=== PATIENT | female | born 1960 | race Caucasian/White ===

== ENCOUNTER 2017-08-05 13:47 | Emergency (ER) | payer MEDICARE, MEDICAID ==
[2017-08-05] MEDS ORDERED: Ondansetron HCl/PF 4 MG/2 ML Vial ONE (14:01)
[2017-08-05 15:37] LABS: Bilirubin Negative (Negative); Blood, Urine Negative (Negative); Clarity CLEAR (Clear); Glucose, Urine (Dipstick) Negative (Negative); Leukocyte Negative (Negative); Nitrite Negative (Negative); Protein, Urine (Dipstick) Negative (Neg-Trace); Specific Gravity, Urine 1.008 (1.002-1.036); Urobilinogen 0.2 mg/dL (0.2-1.0)
[2017-08-05] MEDS ORDERED: HYDROmorphone 0.5 MG/0.5 ML SYRINGE ONE ×3 (16:07→16:50)
[2017-08-05] MEDS ORDERED: Promethazine 25 MG TAB ONE (17:56)
== END 2017-08-05 19:10 | disposition home or self-care (01) ==
LOC: ERS 13:47
DX: R20.2 Paresthesia of skin (principal); F17.210 Nicotine dependence, cigarettes, uncomplicated; Z79.899 Other long term (current) drug therapy
CPT/HCPCS: 81003; 96374; 96375; J1170; J2405

== ENCOUNTER 2017-09-28 14:17 | Outpatient (CLI) | payer MEDICARE, MEDICAID ==
--- NOTE | 2017-09-28 16:22 | MRI ---
MRI LUMBAR SPINE NONCONTRAST: History: Low back pain with left leg radiculopathy. FINDINGS: Based on lumbar spine radiographs, the transitional vertebrae at the lumbosacral junction will be hira ignated as the first sacral level. This places the conus medullaris very low at the L1-2 level. Vertebral body heights and alignment are maintained. Small cyst is apparent within the liver. T12-L1, L1-2, L2-3: Very mild osteophytosis. Central canal and neural foramina are patent. L3-4: Posterior disc bulge along with circumferential degenerative changes results in mild stenosis o f the central canal and moderate stenosis of the right neural foramen. Small annular fissure is prese nt within the left posterior aspect of the intervertebral disc. L4-5: Minimal disc bulge and circumferential degenerative changes result in mild stenosis of the cent ral canal and moderate stenosis of each neural foramen. L5-S1: Small posterior disc protrusion with minimal inferior extension. There is only slight effaceme nt of the thecal sac. Disc bulge and degenerative changes result in moderate to severe left foraminal stenosis. IMPRESSION: Degenerative changes of the lower lumbar spine as detailed above with stenosis greatest at the left n eural foramen at the lumbosacral junction. Clinical correlation regarding the left L5 dermatome is re quired. POS: [facility]
--- NOTE | 2017-09-28 16:45 | RAD ---
LUMBAR SPINE FOUR VIEWS: 09/28/2017 HISTORY: Lumbar radiculopathy. The patient has low back pain with pain and weakness extending down the left l eg. COMPARISON: 08/25/2017 FINDINGS: Again, there are five [id number] lumbar-type vertebral bodies. Scattered minimal osteophytes ar e seen in the lumbar spine. The vertebral body heights are within normal limits, and there is no fra cture or subluxation. No abnormal translational motion is seen between the flexion and extension vie ws. There is mild narrowing of the L5-S1 intervertebral disk space. Surgical clips overly the right upper quadrant. There has been no interval change from the prior exam. IMPRESSION: Minimal degenerative changes in the lumbar spine, but no fracture or subluxation is visualized. POS: [facility]
== END 2017-09-28 14:18 | disposition home or self-care (01) ==
LOC: TBSIIMAG 14:17
PROVIDERS: ATTEND Surgery
DX: M47.26 Other spondylosis with radiculopathy, lumbar region (principal); M99.83 Other biomechanical lesions of lumbar region
CPT/HCPCS: 72110; 72148

== ENCOUNTER 2017-12-13 13:13 | Outpatient (CLI) | payer MEDICARE, MEDICAID ==
[2017-12-13 14:17] LABS: Hemoglobin 15.3 g/dL (12.0-16.0); Mean Corpuscular HGB CONC 35.9 g/dL (32.0-36.0); Mean Corpuscular Hemoglobin 32.5 pg (27.0-31.0); Mean Corpuscular Volume 90.4 fL (78.0-98.0); Mean Platelet Volume 6.2 fL (7.4-10.4); Platelet Count 263 thou/uL (130-400); RBC Distribution Width 11.5 % (11.5-14.5); Red Blood Cell (RBC) Count 4.73 mill/uL (4.20-5.40); White Blood Cell (WBC) Count 4.1 thou/uL (4.8-10.8)
[2017-12-13 14:25] LABS: INR-International Normal Ratio 0.9; PTT 24.4 SEC (22.9-36.1); Prothrombin Time 12.2 SEC (12.0-14.7)
[2017-12-13 14:43] LABS: Anion Gap 17 mmol/L (10-20); BUN (Urea Nitrogen) 9 mg/dL (9.8-20.1); Calc. Creatinine Clearance 0 mL/min (70-130); Calcium 9.3 mg/dL (7.8-10.44); Carbon Dioxide 20 mmol/L (22-29); Chloride 105 mmol/L (98-107); Estimated GFR-MDRD 75; Glucose 90 mg/dL (70-105); Potassium 3.9 mmol/L (3.5-5.1); Sodium 138 mmol/L (136-145)
== END 2017-12-13 13:14 | disposition home or self-care (01) ==
LOC: LABBT 13:13
PROVIDERS: ATTEND Surgery
DX: Z01.818 Encounter for other preprocedural examination (principal); M48.061 Spinal stenosis, lumbar region without neurogenic claudication; M54.16 Radiculopathy, lumbar region
CPT/HCPCS: 80048; 85027; 85610; 85730; 93005; 93010

== ENCOUNTER 2017-12-20 12:18 | Day surgery (SDC) | payer MEDICARE, MEDICAID ==
[2017-12-20] MEDS ORDERED: CEFAZOLIN/Water 2 GM/20 ML SYRINGE ONE (13:12)
[2017-12-20] MEDS ORDERED: Sodium Chloride 0.9% 10 ML ONE (13:37)
[2017-12-20] MEDS ORDERED: Thrombin 5000 UNITS/5 ML VIAL ONE (13:38)
[2017-12-20] MEDS ORDERED: Bacitracin Zinc Ointment 30 gm TUBE ONE (13:38)
[2017-12-20] MEDS ORDERED: Fentanyl 100 MCG/2 ML VIAL ONE ×4 (14:30→17:07)
[2017-12-20] MEDS ORDERED: Dexamethasone 20 MG/5 ML VIAL ONE (15:01)
[2017-12-20] MEDS ORDERED: ePHEDrine/0.9% NaCl/PF SYRINGE 50 mg/10 ml ONE (15:01)
[2017-12-20] MEDS ORDERED: Glycopyrrolate 0.2 MG/ML 5 ML SYRINGE ONE (15:01)
[2017-12-20] MEDS ORDERED: PROPOFOL 200 MG/20 ML VIAL ONE (15:01)
[2017-12-20] MEDS ORDERED: Ondansetron HCl/PF 4 MG/2 ML Vial ONE ×2 (15:01→17:59)
[2017-12-20] MEDS ORDERED: Lidocaine 1% PF 5 ML VIAL ONE (15:01)
[2017-12-20] MEDS ORDERED: Midazolam HCl 2 mg/2 ml Vial ONE (16:35)
[2017-12-20] MEDS ORDERED: Milk Of Magnesia 30 ML UDCUP PO PRN (16:46)
[2017-12-20] MEDS ORDERED: Acetaminophen/Codeine 30-300mg Tablet PO PRN (16:46)
[2017-12-20] MEDS ORDERED: Acetaminophen 325 MG TAB PO PRN (16:46)
[2017-12-20] MEDS ORDERED: Mag-Al 1200 mg/1200 mg/30 ML UDCUP PO PRN (16:46)
[2017-12-20] MEDS ORDERED: traMADol HCl 50 MG TAB PO PRN (16:46)
[2017-12-20] MEDS ORDERED: Promethazine HCl 25 MG/ML VIAL IM PRN (16:46)
[2017-12-20] MEDS ORDERED: Fleet Enema 133 ML BOT PR PRN (16:46)
[2017-12-20] MEDS ORDERED: Bisacodyl 10 MG SUPP PR PRN (16:46)
[2017-12-20] MEDS ORDERED: Promethazine HCl 25 MG/ML VIAL ONE (17:35)
[2017-12-20] MEDS ORDERED: Ketorolac Tromethamine 30 MG/ML VIAL ONE (17:48)
[2017-12-20] MEDS ORDERED: Ondansetron HCl/PF 4 MG/2 ML Vial IVP PRN (18:00)
[2017-12-20] MEDS ORDERED: Non-Formulary Medication 1 EACH PO PRN (18:00)
[2017-12-20] MEDS ORDERED: Promethazine HCl 25 MG/ML VIAL IM/IV PRN (18:00)
[2017-12-20] MEDS ORDERED: Metoclopramide HCl 10 MG/2 ML VIAL ONE (18:07)
[2017-12-20] MEDS ORDERED: Meperidine HCl/PF 25 MG/ML VIAL ONE (18:18)
--- NOTE | 2017-12-20 20:06 | OP ---
WOUND TYPE: Type 1 wound. SURGEON: Lamont Farfan M.D. CALCULUS PROFESSOR: Sumit Zhang PA-C. PREPROCEDURE DIAGNOSES: Left L5 radiculopathy with left L5 stenosis. POSTPROCEDURE DIAGNOSES: Left L5 radiculopathy with left L5 stenosis. PROCEDURE: 1. Left L5-S1 hemilaminotomy, foraminotomy to left L5 nerve root and diskectomy, left L5-S1. 2. Use of operative microscope for microdissection. DESCRIPTION OF PROCEDURE: After informed consent was obtained from the patient, the patient brought to OR 11. Proper patient pause identification was carried out. She was placed on oxygen, endotrache al anesthesia and positioned prone on the OR table. All appropriate points were padded. We identifi ed L5-S1 dorsal spines. A linear kimberley was made over this region. This area was sterilely cleansed, prepared, and draped. Proper patient pause and identification was again carried out. The left L5-S1 segment was then opened and exposed with sharp monopolar and blunt dissection, and left L5-S1 hemila minotomy, foraminotomy was performed following localization. We then were satisfied with our hemilam inotomy and the microscope was brought into the field and more work was done in the axilla of the lef t L5 nerve root and over the shoulder of the left S1 nerve root. We then entered the disk space and some disk material was removed, although the majority was osteophytic. At the conclusion, we had exc ellent decompression of the left L5 and left S1 nerve roots. There was no spinal fluid leak. Copiou s irrigation occurred throughout and we maximized hemostasis. The wound was then closed in anatomic layers following the sprinkling of vancomycin powder. The patient emerged from anesthesia.
[2017-12-20] MEDS: Sodium Chloride 0.9% 1,000 ML IV SCH (21:28)
[2017-12-20] MEDS: HYDROcodone/Acetaminophen 7.5/325 mg Tablet PO PRN (21:38)
[2017-12-20] MEDS: Cyclobenzaprine 10 MG TAB PO PRN (21:38)
[2017-12-20] MEDS: CEFAZOLIN/Water 2 GM/20 ML SYRINGE SLOW IVP SCH (21:40)
[2017-12-20 21:44] VITALS: BMI 19.4
[2017-12-21] MEDS: CEFAZOLIN/Water 2 GM/20 ML SYRINGE SLOW IVP SCH (06:05)
[2017-12-21] MEDS: Sodium Chloride 0.9% 1,000 ML IV SCH (07:10)
[2017-12-21] MEDS: HYDROcodone/Acetaminophen 7.5/325 mg Tablet PO PRN (07:40)
[2017-12-21] MEDS: Cyclobenzaprine 10 MG TAB PO PRN (07:40)
--- NOTE | 2017-12-21 11:23 | PRG ---
DATE OF SERVICE: 12/21/2017 Postop day 1 from left L5 foraminotomy. She is doing very well with resolution of her leg pain. Sharon hoffman. We went over intra and postoperative issues. She will be dismissed.
[2017-12-21 11:29] VITALS: BP 147/84; TEMP 97.7
== END 2017-12-21 12:18 | disposition home or self-care (01) ==
LOC: SDC 12:18 → SURG A 18:04 → SDC 12-21 12:18
PROVIDERS: ATTEND Surgery
PROC: 0SB20ZZ Excision of Lumbar Vertebral Disc, Open Approach (ICD-10-PCS; principal; 2017-12-20)
PROC: 01NB0ZZ Release Lumbar Nerve, Open Approach (ICD-10-PCS; 2017-12-20)
DX: M48.061 Spinal stenosis, lumbar region without neurogenic claudication (principal); Z88.2 Allergy status to sulfonamides
CPT/HCPCS: 76001; 96374; A4216; J0131; J1100; J1885; J2001; J2175; J2250; J2405; J2550; J2704; J2765; J3010; J3370; J3490

== ENCOUNTER 2018-06-16 10:15 | Outpatient (CLI) | payer MEDICARE, MEDICAID ==
--- NOTE | 2018-06-16 11:13 | RAD ---
LEFT ELBOW 4 VIEWS: Date: 06/16/18 HISTORY: Left elbow pain. FINDINGS/IMPRESSION: No fracture, dislocation, or bony destruction is identified. POS: [facility]
== END 2018-06-16 10:16 | disposition home or self-care (01) ==
LOC: RAD 10:15
PROVIDERS: ATTEND Specialist
DX: M25.522 Pain in left elbow (principal)
CPT/HCPCS: 80307; G0483

== ENCOUNTER 2018-10-02 10:25 | Observation (INO) | payer MEDICARE, MEDICAID ==
--- NOTE | 2018-10-02 11:06 | RAD ---
PORTABLE CHEST 1 VIEW: DATE: 10/02/2018. TIME: 10:45 a.m. HISTORY: Syncope, dizziness. FINDINGS: The heart size is normal. The lungs are expanded without focal areas of consolidation, pneumothorace s, or pleural effusions. IMPRESSION: No acute process. POS: [facility]
[2018-10-02 11:32] LABS: #Basophils 0.1 thou/uL (0.0-0.2); #Eosinphils 0.1 thou/uL (0.0-0.7); #Lymphocytes 0.6 thou/uL (1.20-3.40); #Monocytes 0.5 thou/uL (0.11-0.59); #Neutrophils 9.8 thou/uL (1.40-6.50); %Basophils 0.5 % (0.0-1.0); %Eosinophils 0.7 % (0.0-10.0); %Lymphocytes 5.5 % (21.0-51.0); %Monocytes 4.5 % (0.0-10.0); %Neutrophils 88.9 % (42.0-75.0); Hemoglobin 14.7 g/dL (12.0-16.0); Mean Corpuscular HGB CONC 34.3 g/dL (32.0-36.0); Mean Corpuscular Hemoglobin 31.6 pg (27.0-31.0); Mean Corpuscular Volume 92.1 fL (78.0-98.0); Mean Platelet Volume 6.6 fL (7.4-10.4); Platelet Count 278 thou/uL (130-400); RBC Distribution Width 11.4 % (11.5-14.5); Red Blood Cell (RBC) Count 4.66 mill/uL (4.20-5.40)
--- NOTE | 2018-10-02 11:39 | CT ---
CT BRAIN WITHOUT CONTRAST: HISTORY: Dizziness with syncope. FINDINGS: Comparison is made to the exam of 01/23/2014. No evidence of infarct, hemorrhage, midline shift, or abnormal extraaxial fluid collection is seen. The ventricular size is normal and the basilar cisterns are patent. The bony calvarium is intact. T he visualized paranasal sinuses and mastoid air cells are well aerated. IMPRESSION: No CT evidence of acute intracranial process. POS: [facility]
--- NOTE | 2018-10-02 11:42 | CT ---
CT CERVICAL SPINE WITH CORONAL AND SAGITTAL REFORMATIONS: HISTORY: Syncope, collapse, neck pain. FINDINGS/IMPRESSION: There are postop changes of anterior spinal fusion with plate and screws at C5-6-7 levels in good pos ition and alignment. No acute fracture, subluxation, or facet malalignment is identified. The 5 mm low-density lesion in the left lobe of the thyroid gland is stable since 07/19/2015. POS: [facility]
[2018-10-02] MEDS ORDERED: Fentanyl 100 MCG/2 ML VIAL ONE ×2 (11:46→13:46)
[2018-10-02 11:59] LABS: ALT (SGPT) 110 U/L (8-55); AST (SGOT) 89 U/L (5-34); Albumin 4.4 g/dL (3.5-5.0); Alkaline Phosphatase 142 U/L (40-150); Anion Gap 15 mmol/L (10-20); BUN (Urea Nitrogen) 14 mg/dL (9.8-20.1); Bilirubin, Total 0.7 mg/dL (0.2-1.2); CK (CPK) 133 U/L (29-168); Calc. Creatinine Clearance 0 mL/min (70-130); Calcium 9.1 mg/dL (7.8-10.44); Carbon Dioxide 22 mmol/L (22-29); Chloride 106 mmol/L (98-107); Estimated GFR-MDRD 85; Globulin 2.3 g/dL (2.4-3.5); Glucose 103 mg/dL (70-105); Potassium 3.5 mmol/L (3.5-5.1); Protein, Total 6.7 g/dL (6.0-8.3); Sodium 139 mmol/L (136-145)
--- NOTE | 2018-10-02 12:32 | RAD ---
LUMBAR SPINE 3 VIEWS: HISTORY: Injury. Low back pain. FINDINGS: Comparison is made with the exam of 08/25/2017. FINDINGS/IMPRESSION: Mild degenerative changes are present. No fracture, subluxation, or bony destruction is identified. POS: [facility]
--- NOTE | 2018-10-02 12:33 | RAD ---
LEFT HIP 2 VIEWS: HISTORY: Fall, injury, left hip pain. FINDINGS/IMPRESSION: No acute fracture or dislocation is identified. POS: [facility]
[2018-10-02 14:49] LABS: Color Of CSF Supernatant COLORLESS (Colorless); Tube # 2; Unspun CSF Color COLORLESS (Colorless)
[2018-10-02 14:59] LABS: CSF Source CSF; Clarity Clear (Clear); RBC Count - Manual 0 /cumm (None Seen); RBC Count - Manual 5 /cumm (None Seen); Tube # 1; Tube # 4; WBC/NonHematics Count - Manual 0 /cumm (0-5)
[2018-10-02 15:08] LABS: CSF, Glucose 61 mg/dl (40-70); CSF, Protein 44 mg/dL (15-40)
[2018-10-02 15:09] LABS: Troponin I Less than 0.010 ng/mL (< 0.028)
[2018-10-02] MEDS ORDERED: Ondansetron PF 4 MG/2 ML Vial IVP PRN ×2 (16:06→17:18)
[2018-10-02] MEDS ORDERED: Ondansetron ODT 4 MG TAB SL PRN (16:06)
[2018-10-02] MEDS ORDERED: Sodium Chloride 0.9% 1,000 ML IV SCH (16:06)
[2018-10-02] MEDS ORDERED: Ketorolac Tromethamine 30 MG/ML VIAL IVP PRN (16:36)
[2018-10-02] MEDS ORDERED: Ondansetron ODT 4 MG TAB PO PRN (17:18)
[2018-10-02] MEDS ORDERED: Benzonatate 100 MG CAP PO PRN (17:18)
[2018-10-02] MEDS ORDERED: hydrALAZINE 20 MG/ML VIAL SLOW IVP PRN (17:18)
[2018-10-02] MEDS ORDERED: Ibuprofen 200 MG TAB PO PRN (17:18)
[2018-10-02] MEDS ORDERED: Acetaminophen 500 MG TAB PO PRN (17:18)
[2018-10-02 17:24] VITALS: BMI 19.3
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
[2018-10-02 18:11] LABS: Amphetamine Not Detected (NotDetected); Barbiturates Screen Not Detected (NotDetected); Benzodiazepine Screen Not Detected (NotDetected); Cocaine Metabolite Screen Not Detected (NotDetected); Medtox Control Line Valid? VALID (VALID); Medtox Reader # READER 1; Methadone Not Detected (NotDetected); Methamphetamine Not Detected (NotDetected); Opiate Screen Detected (NotDetected); Oxycodone Screen Not Detected (NotDetected); Phencyclidine (PCP) Not Detected (NotDetected); THC/Cannabinoid Screen Detected (NotDetected); Tricyclic Screen Detected (NotDetected)
[2018-10-02 18:27] LABS: Troponin I Less than 0.010 ng/mL (< 0.028)
[2018-10-02] MEDS: Sodium Chloride 0.9% 1,000 ML IV SCH (19:06)
[2018-10-02] MEDS: HYDROcodone/Acetaminophen 10/325 mg Tablet PO PRN (19:55)
[2018-10-02] MEDS: Famotidine 20 MG TAB PO SCH (19:56)
[2018-10-03] MEDS: Sodium Chloride 0.9% 1,000 ML IV SCH ×2 (01:18→13:11)
[2018-10-03] MEDS: HYDROcodone/Acetaminophen 10/325 mg Tablet PO PRN ×3 (01:19→13:06)
[2018-10-03 06:18] LABS: ALT (SGPT) 75 U/L (8-55); AST (SGOT) 54 U/L (5-34); Albumin 3.6 g/dL (3.5-5.0); Alkaline Phosphatase 118 U/L (40-150); Anion Gap 12 mmol/L (10-20); BUN (Urea Nitrogen) 12 mg/dL (9.8-20.1); Bilirubin, Total 1.2 mg/dL (0.2-1.2); Calc. Creatinine Clearance 66 mL/min (70-130); Calcium 8.4 mg/dL (7.8-10.44); Carbon Dioxide 22 mmol/L (22-29); Chloride 109 mmol/L (98-107); Estimated GFR-MDRD 85; Globulin 2.2 g/dL (2.4-3.5); Glucose 80 mg/dL (70-105); Potassium 3.2 mmol/L (3.5-5.1); Protein, Total 5.8 g/dL (6.0-8.3); Sodium 140 mmol/L (136-145)
[2018-10-03 06:52] LABS: Hemoglobin 13.1 g/dL (12.0-16.0); Mean Corpuscular HGB CONC 32.8 g/dL (32.0-36.0); Mean Corpuscular Hemoglobin 30.7 pg (27.0-31.0); Mean Corpuscular Volume 93.6 fL (78.0-98.0); Mean Platelet Volume 6.8 fL (7.4-10.4); Platelet Count 243 thou/uL (130-400); RBC Distribution Width 11.4 % (11.5-14.5); Red Blood Cell (RBC) Count 4.26 mill/uL (4.20-5.40); White Blood Cell (WBC) Count 4.5 thou/uL (4.8-10.8)
[2018-10-03] MEDS: Famotidine 20 MG TAB PO SCH (08:48)
--- NOTE | 2018-10-03 09:10 | ULT ---
CAROTID DUPLEX SONOGRAM: History: Syncope. Vascular disease. FINDINGS: Right: No significant plaque. Color and spectral doppler evaluation, peak systolic velocity of 68 cm/ sec and IC to CC ratio of 1.0 suggests no hemodynamically significant stenosis within the extracrania l right ICA. Antegrade flow within the vertebral artery. Left: No significant plaque visible. Color and spectral doppler evaluation, peak systolic velocity of 64 cm/sec, and IC to CC ratio of 0.7 cm suggests no hemodynamically significant stenosis within the extracranial left ICA. Antegrade flow within the vertebral artery. IMPRESSION: Normal exam. No sonographic evidence of significant extracranial ICA stenosis. POS: [facility]
[2018-10-03 09:19] LABS: Band 5 % (5-11); Eosinophils 10 % (0-10); Lymphocytes 26 % (21-51); MDiff Complete? YES; Monocytes 10 % (0-10); Neutrophil 48 % (42-75); RBC Morphology Normal; Reactive Lymphocytes 1 % (0-10)
--- NOTE | 2018-10-03 09:22 | RAD ---
FLUOROSCOPIC GUIDED LUMBAR PUNCTURE: History: Syncope, headache. FINDINGS: After explaining the procedure and answering all questions, the lower back was prepped and draped in the usual sterile fashion. Sterile technique, buffered local anesthesia, sonographic guidance and a p osterior L2-3 approach were used to carefully advance a 20 gauge spinal needle into the thecal sac. A total volume of 7 cc clear CSF was collected in four sterile containers and submitted to laboratory for analysis. The needle was removed. The patient tolerated the procedure well and was returned in un changed condition. Fluoro time: 0.3 minutes IMPRESSION: Technically successful fluoroscopic guided lumbar puncture. POS: [facility]
[2018-10-03 11:44] VITALS: BP 131/75; TEMP 97.4
== END 2018-10-03 16:11 | disposition home or self-care (01) ==
LOC: ERS 10:25 → 2SE 14:00
PROVIDERS: ADMIT Family Medicine; ATTEND Family Medicine
DX: R55 Syncope and collapse (principal); R51 Headache; R42 Dizziness and giddiness; M25.552 Pain in left hip; M54.5 Low back pain; M54.2 Cervicalgia; D72.829 Elevated white blood cell count, unspecified; G89.4 Chronic pain syndrome; F17.210 Nicotine dependence, cigarettes, uncomplicated; R74.0 Nonspecific elevation of levels of transaminase and lactic acid dehydrogenase [LDH]; W18.30XA Fall on same level, unspecified, initial encounter; Y92.000 Kitchen of unspecified non-institutional (private) residence as the place of occurrence of the external cause; Z79.891 Long term (current) use of opiate analgesic; Z79.899 Other long term (current) drug therapy; Z88.2 Allergy status to sulfonamides
CPT/HCPCS: 62270; 70450; 71045; 72100; 72125; 73502; 80053 ×2; 80306; 82550; 82945; 84146; 84157; 84484 ×2; 85007; 85025; 85027; 89051; 93005; 93306; 93880; 96361; 96374; 96375; 96376; 99285; G0378 ×2; 36415; J1885; J3010

== ENCOUNTER 2018-10-05 13:13 | Emergency (ER) | payer MEDICARE, MEDICAID ==
[~2018-10-05 13:13] MED LIST: ISOVUE-370 76%-LOCM 1 ML ONE
[2018-10-05] MEDS ORDERED: Metoclopramide 10 MG/10 ML UDCUP ONE (14:50)
[2018-10-05] MEDS ORDERED: diphenhydrAMINE 50 MG/ML VIAL ONE (14:50)
[2018-10-05] MEDS ORDERED: Metoclopramide HCl 10 MG/2 ML VIAL ONE (14:51)
[2018-10-05 15:09] LABS: #Eosinphils 0.3 thou/uL (0.0-0.7); #Lymphocytes 0.9 thou/uL (1.20-3.40); #Monocytes 0.4 thou/uL (0.11-0.59); #Neutrophils 2.5 thou/uL (1.40-6.50); %Basophils 0.3 % (0.0-1.0); %Eosinophils 6.5 % (0.0-10.0); %Lymphocytes 21.9 % (21.0-51.0); %Monocytes 9.2 % (0.0-10.0); Hemoglobin 14.2 g/dL (12.0-16.0); Mean Corpuscular HGB CONC 33.9 g/dL (32.0-36.0); Mean Corpuscular Hemoglobin 31.7 pg (27.0-31.0); Mean Corpuscular Volume 93.6 fL (78.0-98.0); Platelet Count 245 thou/uL (130-400); RBC Distribution Width 11.4 % (11.5-14.5); Red Blood Cell (RBC) Count 4.46 mill/uL (4.20-5.40); White Blood Cell (WBC) Count 4.1 thou/uL (4.8-10.8)
[2018-10-05 15:34] LABS: ALT (SGPT) 52 U/L (8-55); AST (SGOT) 37 U/L (5-34); Albumin 4.1 g/dL (3.5-5.0); Alkaline Phosphatase 126 U/L (40-150); Anion Gap 12 mmol/L (10-20); BUN (Urea Nitrogen) 5 mg/dL (9.8-20.1); Bilirubin, Total 0.4 mg/dL (0.2-1.2); Calc. Creatinine Clearance 0 mL/min (70-130); Calcium 9.9 mg/dL (7.8-10.44); Carbon Dioxide 28 mmol/L (22-29); Chloride 103 mmol/L (98-107); Estimated GFR-MDRD Greater than 90; Globulin 2.7 g/dL (2.4-3.5); Glucose 107 mg/dL (70-105); Potassium 4.4 mmol/L (3.5-5.1); Protein, Total 6.8 g/dL (6.0-8.3); Sodium 139 mmol/L (136-145)
--- NOTE | 2018-10-05 15:39 | CT ---
Exam: CT ANGIOGRAM OF HEAD CT ANGIOGRAM OF NECK: HISTORY: Throbbing headache, radiating down the neck. History of syncope. COMPARISON: None. TECHNIQUE: CT angiogram of the head and neck are performed in the axial plane. Three-dimensional refo rmatted images are submitted for interpretation. FINDINGS: Postcontrast head CT: Cortical oh-white matter differentiation is preserved. No abnormal enhancement of the brain parench yma. No hydrocephalus. Adequate aeration of the sinuses and mastoid air cells. Postcontrast neck CT: Bilateral ocular lenses are appropriately located. Both globes are intact. Retrobulbar fat is preserv ed. Symmetric attenuation of the parotid and submandibular glands. No evidence of lymphadenopathy by size criteria. Limited evaluation the oral cavity due to motion and dental amalgam artifact. Epiglottis has a normal caliber. There is no prevertebral soft tissue swelling. Cervical fusion at C5, C6, and C7. No perihardware lucency. Straightening of normal cervical lordosis , secondary to fusion. Varying degrees of central canal stenosis and neural foraminal narrowing on the basis of degenerative change. Evaluation is limited by technique. Upper mediastinum and lung apices are unremarkable. CT ANGIOGRAM NECK: Visualized aortic arch has a normal caliber. Right carotid: The right carotid artery origin, common carotid artery, carotid bifurcation, and inter nal carotid artery have appropriate enhancement and luminal diameter. Left carotid: The left carotid artery origin, common carotid, carotid bifurcation, and internal carot id artery have appropriate enhancement and luminal diameter. Bilateral cervical vertebral arteries are patent throughout their course in the neck. Left vertebral artery is dominant. Visualized subclavian arteries are unremarkable. CT ANGIOGRAM HEAD: Intracranial internal carotid arteries have appropriate enhancement and luminal di ameter Anterior circulation: Symmetric enhancement and luminal diameter the A1 and M1 segments. Proximal A2 segments and proximal MCA branches are unremarkable. Posterior circulation: Bilateral PICA artery origins are unremarkable. Both vertebral arteries supply a normal basilar artery. The left and right P1 segment have symmetric enhancement and luminal diameter. IMPRESSION: 1. Unremarkable CT angiogram of the head. 2. Unremarkable CT angiogram of the neck. No significant stenosis based upon NASCET criteria. Transcribed Date/Time: 10/05/2018 3:55 PM
--- NOTE | 2018-10-05 16:12 | CT ---
CT BRAIN WITHOUT CONTRAST: Date: 10/05/18 HISTORY: Throbbing headache. FINDINGS: Comparison made with exam of 10/02/18. No evidence of acute infarct, hemorrhage, midline shift, or abnormal extra-axial fluid collections ar e seen. The ventricular size is normal and the basilar cisterns are patent. The bony calvarium is int act. The visualized paranasal sinuses and mastoid air cells are well aerated. IMPRESSION: Stable exam. No CT evidence of acute intracranial process. POS: [facility]
[2018-10-05] MEDS ORDERED: Ketorolac Tromethamine 30 MG/ML VIAL ONE (16:19)
[2018-10-05] MEDS ORDERED: methylPREDNISolone Sod Succ/PF 125 MG/2 ML VIAL ONE (16:19)
[2018-10-05] MEDS ORDERED: Magnesium 2 GM/50 ML BAG (IN WATER) ONE (16:20)
== END 2018-10-05 18:15 | disposition home or self-care (01) ==
LOC: ERS 13:13
DX: H57.02 Anisocoria (principal); Z87.891 Personal history of nicotine dependence; Z79.1 Long term (current) use of non-steroidal anti-inflammatories (NSAID); Z79.899 Other long term (current) drug therapy
CPT/HCPCS: 70450; 70496; 70498; 80053; 85025; 96361; 96365; 96367; 96375; J1200; J1885; J2765; J2930; J3475; J8597; Q9966

== ENCOUNTER 2019-02-20 08:38 | Emergency (ER) | payer MEDICARE, MEDICAID ==
[2019-02-20] MEDS ORDERED: Morphine 4 MG/ML VIAL ONE (09:11)
[2019-02-20] MEDS ORDERED: Ondansetron PF 4 MG/2 ML Vial ONE (09:11)
[2019-02-20 09:12] LABS: #Basophils 0.1 thou/uL (0.0-0.2); #Eosinphils 0.2 thou/uL (0.0-0.7); #Lymphocytes 1.3 thou/uL (1.20-3.40); #Monocytes 0.5 thou/uL (0.11-0.59); #Neutrophils 2.6 thou/uL (1.40-6.50); %Basophils 1.4 % (0.0-1.0); %Eosinophils 3.9 % (0.0-10.0); %Lymphocytes 28.1 % (21.0-51.0); %Monocytes 10.4 % (0.0-10.0); %Neutrophils 56.2 % (42.0-75.0); Hemoglobin 14.6 g/dL (12.0-16.0); Mean Corpuscular HGB CONC 34.8 g/dL (32.0-36.0); Mean Corpuscular Hemoglobin 30.9 pg (27.0-31.0); Mean Corpuscular Volume 88.8 fL (78.0-98.0); Mean Platelet Volume 7.1 fL (7.4-10.4); Platelet Count 251 thou/uL (130-400); RBC Distribution Width 11.6 % (11.5-14.5); Red Blood Cell (RBC) Count 4.72 mill/uL (4.20-5.40); White Blood Cell (WBC) Count 4.7 thou/uL (4.8-10.8)
[2019-02-20 09:31] LABS: ALT (SGPT) 45 U/L (8-55); AST (SGOT) 96 U/L (5-34); Albumin 4.4 g/dL (3.5-5.0); Alkaline Phosphatase 171 U/L (40-110); Anion Gap 13 mmol/L (10-20); BUN (Urea Nitrogen) 8 mg/dL (9.8-20.1); Bilirubin, Total 0.6 mg/dL (0.2-1.2); Calc. Creatinine Clearance 0 mL/min (70-130); Calcium 9.4 mg/dL (7.8-10.44); Carbon Dioxide 26 mmol/L (22-29); Chloride 103 mmol/L (98-107); Estimated GFR-MDRD 81; Globulin 2.7 g/dL (2.4-3.5); Glucose 102 mg/dL (70-105); Lipase 16 U/L (8-78); Potassium 3.6 mmol/L (3.5-5.1); Protein, Total 7.1 g/dL (6.0-8.3); Sodium 138 mmol/L (136-145)
--- NOTE | 2019-02-20 09:32 | RAD ---
EXAM: 4 views of the left knee HISTORY: Knee pain COMPARISON: None FINDINGS: No knee effusion is seen. There is no evidence of acute fracture or dislocation. No signifi cant degenerative changes are seen. No soft tissue swelling is present. IMPRESSION: No evidence of acute osseous abnormality.
--- NOTE | 2019-02-24 14:39 | EKG ---
Test Reason : Blood Pressure : / mmHG Vent. Rate : 074 BPM Atrial Rate : 074 BPM P-R Int : 126 ms QRS Dur : 100 ms QT Int : 440 ms P-R-T Axes : 000 136 121 degrees QTc Int : 488 ms Normal sinus rhythm Incomplete right bundle branch block Left posterior fascicular block Prolonged QT Abnormal ECG Confirmed by ELIESER OH DO ([id number]), website/blog editor ITALIA ZHANG ([id number]) on 02/24/2019 2:38:59 PM Referred By: Confirmed By:ELIESER OH DO
== END 2019-02-20 10:05 | disposition home or self-care (01) ==
LOC: ERS 08:38
DX: M25.562 Pain in left knee (principal); R10.9 Unspecified abdominal pain; F17.210 Nicotine dependence, cigarettes, uncomplicated; Z79.899 Other long term (current) drug therapy
CPT/HCPCS: 36415; 80053; 83690; 85025; 93005; 96361; 96374; 96375; J2270; J2405

== ENCOUNTER 2019-03-23 13:57 | Outpatient (CLI) | payer MEDICAID, MEDICARE ==
--- NOTE | 2019-03-23 16:16 | MRI ---
MR CERVICAL SPINE WITHOUT CONTRAST INDICATION: Pain in the right arm and right leg as well as numbness in the left arm and left leg with history of cervical spinal surgery TECHNIQUE: Multiplanar multisequence MR images were obtained of the cervical spine without contrast. COMPARISON: CT of the cervical spine dated October 02, 2018. Comparisons are also made with MR the cervic al spine dated August 21, 2012. FINDINGS: Posterior fossa: Within normal limits. Bone marrow signal intensity: There is susceptibility artifact involving the C5-C7 vertebral level co nsistent with postsurgical change of an ACDF. Spinal alignment: Normal. Craniocervical junction: Normal appearing. Prevertebral and perivertebral soft tissues: Visualized soft tissues appear within normal limits. Vertebral levels: C2-C3: No appreciable central canal or neuroforaminal narrowing. C3-4: Mild broad-based disc bulge without appreciable central canal or neural foraminal narrowing. C4-5: There is a mild broad-based disc bulge. There is mild right neural foraminal narrowing due to u ncovertebral hypertrophy and facet joint degenerative change. Mild right neural foraminal narrowing is new from 2013. C5-C6: There is severe right neural foraminal narrowing due to uncovertebral hypertrophy and facet de generative change. There is mild left neural foraminal narrowing also present at this level. The degree neuroforaminal narrowing has progressed from the prior MR examination in 2012. C6-C7:, No appreciable central canal or neuroforaminal narrowing. C7-T1: No appreciable central canal or neuroforaminal narrowing. IMPRESSION: 1. Severe right and mild left neural foraminal narrowing due to uncovertebral hypertrophy and facet j oint degenerative change at C5-C6. 2. Mild right neural foraminal narrowing at C4-5. 3. ACDF of C5-C7.
--- NOTE | 2019-03-23 16:26 | MRI ---
MRI lumbar spine noncontrast: HISTORY: Lumbar radiculopathy. Right leg pain. Left leg numbness. COMPARISON: 09/28/2017 FINDINGS: Appropriate T1 marrow signal intensity of the lumbar vertebra. Lumbar spine vertebral body height is maintained. No fracture. No significant STIR hyperintensity to suggest vertebral body edema or ligamentous injury Appropriate signal intensity of the paraspinal muscles. Appropriate signal intensi ty of the solid organs. Stable T2 hyperintensity on the right hepatic lobe measuring 1.2 cm, compatible with a cyst. Conus medullaris terminates at the upper aspect of L2. T12-L1:Adequate disc hydration. No significant central canal stenosis or significant neural foraminal narrowing L1-L2:Adequate disc hydration. No significant central canal stenosis or significant neural foraminal narrowing L2-L3:Adequate disc hydration. Minimal left and right paracentral disc bulges. Mild central canal david nosis. Neural foramina are patent L3-L4:Adequate disc hydration. Broad-based disc bulge, ligament flavum thickening and facet hypertrop hy result in mild central canal stenosis. Bilaterally, neural foramina pain L4-L5:Adequate disc hydration. Broad-based disc bulge, ligamentum flavum thickening and facet hypertr ophy result in mild central canal stenosis. Mild right neural foraminal narrowing. Left neural foramen is patent L5-S1:Mild loss of disc space height. Broad-based disc bulge does not cause any significant stenosis of the thecal sac. Mild right foraminal narrowing due to disc material. Severe left foraminal narrowing due to disc material and facet hypertrophy. The degree of left foraminal stenosis is simila r to the previous exam. IMPRESSION: Multilevel degenerative changes of the lumbar spine as described above Transcribed Date/Time: 03/23/2019 5:04 PM
== END 2019-03-23 13:58 | disposition home or self-care (01) ==
LOC: TBSIIMAG 13:57
PROVIDERS: ATTEND Nurse Practitioner Family
DX: M47.26 Other spondylosis with radiculopathy, lumbar region (principal); M54.2 Cervicalgia; M47.812 Spondylosis without myelopathy or radiculopathy, cervical region; M48.02 Spinal stenosis, cervical region
CPT/HCPCS: 72141; 72148

== ENCOUNTER 2020-01-21 06:43 | Outpatient (CLI) | payer MEDICARE, OTHER ==
--- NOTE | 2020-01-21 15:27 | EKG ---
Test Reason : Blood Pressure : / mmHG Vent. Rate : 082 BPM Atrial Rate : 082 BPM P-R Int : 132 ms QRS Dur : 090 ms QT Int : 398 ms P-R-T Axes : 000 088 081 degrees QTc Int : 464 ms Normal sinus rhythm Normal ECG When compared with ECG of 21-JAN-2020 14:17, (Unconfirmed) Abberant conduction is no longer Present Confirmed by NAYANA CALDERON M.D. ([id number] on 01/21/2020 3:27:39 PM Referred By: ALESSANDRO Confirmed By:NAYANA CALDERON M.D.
[2020-01-21 16:15] LABS: #Monocytes 0.4 thou/uL (0.11-0.59); #Neutrophils 3.8 thou/uL (1.40-6.50); %Basophils 0.6 % (0.0-1.0); %Eosinophils 0.7 % (0.0-10.0); %Lymphocytes 18.7 % (21.0-51.0); %Neutrophils 71.9 % (42.0-75.0); Hemoglobin 13.7 g/dL (12.0-16.0); Mean Corpuscular HGB CONC 33.6 g/dL (32.0-36.0); Mean Corpuscular Hemoglobin 31.5 pg (27.0-31.0); Mean Corpuscular Volume 93.8 fL (78.0-98.0); Mean Platelet Volume 6.6 fL (7.4-10.4); Platelet Count 315 thou/uL (130-400); Red Blood Cell (RBC) Count 4.34 mill/uL (4.20-5.40); White Blood Cell (WBC) Count 5.3 thou/uL (4.8-10.8)
[2020-01-21 19:29] LABS: Anion Gap 18 mmol/L (10-20); BUN (Urea Nitrogen) 6 mg/dL (9.8-20.1); Calc. Creatinine Clearance 0 mL/min (70-130); Calcium 8.8 mg/dL (7.8-10.44); Carbon Dioxide 20 mmol/L (22-29); Chloride 101 mmol/L (98-107); Estimated GFR-MDRD 76; Glucose 122 mg/dL (70-105); Sodium 135 mmol/L (136-145)
[2020-01-22 13:01] LABS: SARS-CoV-2 MS2 Positive; SARS-CoV-2 N Gene Negative; SARS-CoV-2 S Gene Negative; SARS-CoV-2 by NAA Not Detected (NotDetected); SARS-CoV-2 orf1ab Negative
== END 2020-01-21 06:44 | disposition home or self-care (01) ==
LOC: LABBT 06:43
PROVIDERS: ATTEND Internal Medicine Gastroenterology
DX: Z01.818 Encounter for other preprocedural examination (principal); Z20.828 Contact with and (suspected) exposure to other viral communicable diseases; S46.011A Strain of muscle(s) and tendon(s) of the rotator cuff of right shoulder, initial encounter; M75.20 Bicipital tendinitis, unspecified shoulder
CPT/HCPCS: 80048; 85025; 93005; U0003; 87635; 93010

== ENCOUNTER 2020-01-24 06:31 | Day surgery (SDC) | payer MEDICARE ==
[2020-01-22 10:38] VITALS: BMI 20.1
[2020-01-24] MEDS ORDERED: Midazolam HCl 2 mg/2 ml Vial ONE (07:31)
[2020-01-24] MEDS ORDERED: Fentanyl 100 MCG/2 ML VIAL ONE (07:32)
[2020-01-24] MEDS ORDERED: Promethazine HCl 25 MG/ML VIAL IM PRN (08:15)
[2020-01-24] MEDS ORDERED: HYDROcodone/Acetaminophen 10/325 mg Tablet PO PRN ×2 (08:15)
[2020-01-24] MEDS ORDERED: Zolpidem Tartrate 5 MG TAB PO PRN (08:15)
[2020-01-24] MEDS ORDERED: traMADol HCl 50 MG TAB PO PRN ×2 (08:15)
[2020-01-24] MEDS ORDERED: Ropivacaine 0.2% 550 ML 550 ML NERVE BLCK SCH (08:15)
[2020-01-24] MEDS ORDERED: Ondansetron PF 4 MG/2 ML Vial IVP PRN (08:15)
[2020-01-24] MEDS ORDERED: Fentanyl 100 MCG/2 ML VIAL IV PRN (08:16)
[2020-01-24] MEDS ORDERED: Bupivacaine HCl 0.5%/Epinephrine 1:200,000/PF 30 ml Vial ONE (08:49)
[2020-01-24] MEDS ORDERED: Ondansetron PF 4 MG/2 ML Vial ONE ×2 (09:06→10:23)
[2020-01-24] MEDS ORDERED: Glycopyrrolate 0.2 MG/ML 5 ML SYRINGE ONE (10:23)
[2020-01-24] MEDS ORDERED: Rocuronium Bromide 10 MG/ML (10ML VIAL) ONE (10:23)
[2020-01-24] MEDS ORDERED: Lidocaine 1% PF 5 ML VIAL ONE (10:23)
[2020-01-24] MEDS ORDERED: PROPOFOL 200 MG/20 ML VIAL ONE (10:23)
[2020-01-24] MEDS ORDERED: EPHEDRINE 25 MG/5 ML SYRINGE ONE (10:23)
[2020-01-24] MEDS ORDERED: Dexamethasone 20 MG/5 ML VIAL ONE (10:23)
[2020-01-24] MEDS ORDERED: Promethazine HCl 25 MG/ML VIAL ONE (10:25)
[2020-01-24] MEDS ORDERED: Ropivacaine 0.2% HCl/PF (40 MG/20 ML VIAL) ONE (10:25)
[2020-01-24] MEDS ORDERED: Ropivacaine 0.5% HCl/PF (150 MG/30 ML VIAL) ONE (10:25)
[2020-01-24] MEDS ORDERED: Ketorolac Tromethamine 30 MG/ML VIAL IVP SCH (12:00)
--- NOTE | 2020-01-24 15:06 | OP ---
DATE OF PROCEDURE: 01/24/2020 PREOPERATIVE DIAGNOSIS: Right full-thickness supraspinatus and infraspinatus rotator cuff tear with biceps tendinopathy. POSTOPERATIVE DIAGNOSES: 1. Right full-thickness supraspinatus and infraspinatus tear. 2. Leading edge as well as 10% subscapularis tear. 3. Less than 10% biceps fraying. 4. Degenerative labral tear. PROCEDURES PERFORMED: 1. Right rotator cuff repair. 2. Limited debridement of labrum/biceps/subscapularis METAL FABRICATOR APPRENTICE: None. ANESTHESIOLOGIST: Dr. Raphael. ANESTHESIA: The patient received a general intubation with interscalene block. ESTIMATED BLOOD LOSS: 30 mL. ANTIBIOTICS: Ancef 2 g. IMPLANTS: Two 5.5 Corkscrews and two 4.75 SwiveLocks. COMPLICATIONS: None. HISTORY OF PRESENT ILLNESS: Ms. Rodriguez is a 59-year-old female with a right rotator cuff tear, which is chronic. She had a fall in an injury she was done with her 's passing. I discussed the risks and benefits of right rotator cuff tear, possible biceps tenodesis and decompression to include pain, scar, bleeding, infection, damage to vital structures, decreased range of motion and strength, continued pain despite surgical intervention, need for further surgeries, failure of repair, loss of life or limb. The patient understood the risks and benefits and elected to proceed. DESCRIPTION OF PROCEDURE: After time-out performed designating the right upper extremity as the operative site based on site, consents, and marking, the patient's upper extremity was prepped and draped in a beach chair position with a posterior working portal and anterior working portal visualized intra-articularly. There was some degenerative labrum that was debrided a little partial undersurface tear of the biceps, but otherwise looked good through its course. The intra-articular portion of the full-thickness cuff tear was noted and documented leading edge of subscapularis partial tear, which was debrided. The biceps had a little less than 10% tear and therefore I left it in place and debrided just little bit of labrum otherwise and I liked the overall alignment position. Therefore, I moved subacromially, debriding off the bursa. Exposed the cuff. I took a lenka to make great bleeding bone in the footprint for full-thickness supraspinatus and infraspinatus tear. The two anchors anterior and posterior within the footprint that I debrided 5.5 Corkscrews, I passed 8 sutures and sewed 4 horizontal mattress sutures. I used a single FiberWire stitch as a luggage-handle stitch anteriorly. I passed those in a double row fashion laterally with 4.75 SwiveLock, cut the stitches, washed to ensure there were no other spaces, liked the overall repair, washed and closed with 2-0 nylon. The patient will be followed up in about 2 weeks to begin elbow, wrist, and hand range of motion. Her outlook is guarded given her soft tissue compromise and history of smoking. Job ID: [id number] [facility]
== END 2020-01-24 12:05 | disposition home or self-care (01) ==
LOC: SDC 06:31
PROVIDERS: ATTEND Orthopaedic Surgery
PROC: 0LQ14ZZ Repair Right Shoulder Tendon, Percutaneous Endoscopic Approach (ICD-10-PCS; principal; 2020-01-24)
PROC: 3E0T3BZ Introduction of Anesthetic Agent into Peripheral Nerves and Plexi, Percutaneous Approach (ICD-10-PCS; 2020-01-24)
DX: S46.011A Strain of muscle(s) and tendon(s) of the rotator cuff of right shoulder, initial encounter (principal); M75.20 Bicipital tendinitis, unspecified shoulder; S43.431A Superior glenoid labrum lesion of right shoulder, initial encounter; G89.18 Other acute postprocedural pain; M19.011 Primary osteoarthritis, right shoulder; G89.29 Other chronic pain; M54.16 Radiculopathy, lumbar region; K22.70 Barrett's esophagus without dysplasia; F32.9 Major depressive disorder, single episode, unspecified; F17.210 Nicotine dependence, cigarettes, uncomplicated; Z79.899 Other long term (current) drug therapy; Z88.2 Allergy status to sulfonamides; Z98.890 Other specified postprocedural states; W19.XXXA Unspecified fall, initial encounter
CPT/HCPCS: 29827; 64416; A4306; C1713 ×2; J0670; J0690; J1100; J2250; J2405; J2550; J2704; J2795; J3010

== ENCOUNTER 2020-02-22 16:29 | Emergency (ER) | payer MEDICARE ==
[2020-02-22] MEDS ORDERED: HYDROcodone/Acetaminophen 10/325 mg Tablet ONE (17:22)
--- NOTE | 2020-02-22 17:35 | RAD ---
Left hip 2 views HISTORY: Fall. Injury. FINDINGS: Very mild joint space narrowing and subchondral sclerosis. Femoral head contour is maintain ed. No acute fracture or dislocation. IMPRESSION : Mild osteoarthritic changes. No acute osseous abnormalities are demonstrated.
--- NOTE | 2020-02-22 17:36 | RAD ---
AP pelvis one view HISTORY: Injury. FINDINGS: Sacral alae and pelvic rings are intact. Mild osteoarthritic changes of each hip. Metallic clip overlies the L4 vertebral body. Phleboliths project over the pelvis. IMPRESSION : No acute osseous abnormalities are demonstrated.
--- NOTE | 2020-02-22 17:38 | RAD ---
Left shoulder 3 views HISTORY: Injury. FINDINGS: Acromioclavicular and glenohumeral alignment are maintained. Chronic erosion involving the undersurface of the distal clavicle is similar to the 01/23/2014 exam. No acute fracture or dislocation are evident. Old healed fracture of the posterior aspect of the left second rib is evident. There are postoperative changes of the cervical spine. IMPRESSION : Chronic-type findings. No acute osseous abnormalities are demonstrated.
--- NOTE | 2020-02-22 17:46 | CT ---
CT cervical spine noncontrast HISTORY: Fall. Injury. FINDINGS: Vertebral body heights and alignment are maintained. Anterior operative fixation at the C5- 6-7 levels again demonstrated. No evidence of hardware complication. Cervicothoracic junction is intact. No acute fracture or dislocation. IMPRESSION : No acute osseous abnormalities are demonstrated.
== END 2020-02-22 18:47 | disposition home or self-care (01) ==
LOC: ERS 16:29
DX: G62.9 Polyneuropathy, unspecified (principal); M25.511 Pain in right shoulder; M25.512 Pain in left shoulder; M25.552 Pain in left hip; M54.6 Pain in thoracic spine; R20.0 Anesthesia of skin; F41.9 Anxiety disorder, unspecified; F17.210 Nicotine dependence, cigarettes, uncomplicated; Z79.899 Other long term (current) drug therapy; W01.0XXA Fall on same level from slipping, tripping and stumbling without subsequent striking against object, initial encounter
CPT/HCPCS: 72125; 72170

== ENCOUNTER 2020-04-14 08:58 | Emergency (ER) | payer MEDICARE ==
[2020-04-14] MEDS ORDERED: Acetaminophen 500 MG TAB ONE (09:24)
[2020-04-14] MEDS ORDERED: Metoclopramide HCl 10 MG/2 ML VIAL ONE (09:24)
[2020-04-14] MEDS ORDERED: Aspirin Chewable 81 MG TAB ONE (09:24)
[2020-04-14] MEDS ORDERED: diphenhydrAMINE 50 MG/ML VIAL ONE (09:24)
[2020-04-14 09:28] LABS: #Eosinphils 0.1 thou/uL (0.0-0.7); #Monocytes 0.4 thou/uL (0.11-0.59); #Neutrophils 1.8 thou/uL (1.40-6.50); %Eosinophils 2.5 % (0.0-10.0); %Neutrophils 53.6 % (42.0-75.0); Hemoglobin 14.1 g/dL (12.0-16.0); Mean Corpuscular HGB CONC 33.5 g/dL (32.0-36.0); Mean Corpuscular Hemoglobin 30.8 pg (27.0-31.0); Mean Corpuscular Volume 91.8 fL (78.0-98.0); Mean Platelet Volume 6.4 fL (7.4-10.4); Platelet Count 270 thou/uL (130-400); RBC Distribution Width 11.6 % (11.5-14.5); Red Blood Cell (RBC) Count 4.57 mill/uL (4.20-5.40); White Blood Cell (WBC) Count 3.4 thou/uL (4.8-10.8)
--- NOTE | 2020-04-14 09:36 | RAD ---
Chest AP view INDICATION: Emergency room examination COMPARISON: Prior exam dated October 02, 2018 FINDINGS: Lungs: The lungs are clear Cardiac silhouette: The cardiomediastinal silhouette appears within normal limits. Pulmonary vasculature: Normal Pleural spaces: No pleural effusion or pneumothorax is demonstrated. Upper abdomen: No abnormality seen. Osseous structures: There is partial visualization of an ACDF involving the lower cervical spine. Additional findings: None. IMPRESSION: No acute cardiopulmonary abnormality.
[2020-04-14 09:47] LABS: ALT (SGPT) 55 U/L (8-55); AST (SGOT) 56 U/L (5-34); Albumin 4.1 g/dL (3.5-5.0); Alkaline Phosphatase 178 U/L (40-110); Anion Gap 14 mmol/L (10-20); BUN (Urea Nitrogen) 5 mg/dL (9.8-20.1); Bilirubin, Total 0.4 mg/dL (0.2-1.2); Calc. Creatinine Clearance 0 mL/min (70-130); Calcium 8.6 mg/dL (7.8-10.44); Carbon Dioxide 27 mmol/L (22-29); Chloride 99 mmol/L (98-107); Glucose 113 mg/dL (70-105); Lipase 31 U/L (8-78); Potassium 3.2 mmol/L (3.5-5.1); Protein, Total 7.1 g/dL (6.0-8.3); Sodium 137 mmol/L (136-145)
[2020-04-14 10:07] LABS: Bacteria/HPF None Seen HPF (None Seen); Bilirubin Negative (Negative); Blood, Urine Negative (Negative); Clarity Clear (Clear); Glucose, Urine (Dipstick) Normal (Negative); Ketone, Urine Negative (Negative); Leukocyte 25 Leu/uL (Negative); Nitrite Negative (Negative); Protein, Urine (Dipstick) Negative (Neg-Trace); RBC/HPF None Seen HPF (0-3); Specific Gravity, Urine 1.002 (1.002-1.036); Squamous Epithelial 0-3 HPF (0-3); Urobilinogen Normal mg/dL (Less than 2); WBC/HPF 0-3 HPF (0-3)
[2020-04-14] MEDS ORDERED: Potassium Chloride 20 MEQ TAB ONE (10:28)
== END 2020-04-14 11:15 | disposition home or self-care (01) ==
LOC: ERS 08:58
DX: R07.9 Chest pain, unspecified (principal); R06.02 Shortness of breath; R51.9 Headache, unspecified; F17.210 Nicotine dependence, cigarettes, uncomplicated; Z79.1 Long term (current) use of non-steroidal anti-inflammatories (NSAID); Z79.899 Other long term (current) drug therapy
CPT/HCPCS: 71045; 80053; 81003; 81015; 83690; 83880; 84484; 85025; 93005; 94760; 96365; 96366; 96375; J1200; J2765

== ENCOUNTER 2020-05-22 13:06 | Emergency (ER) | payer MEDICARE ==
[2020-05-22] MEDS ORDERED: Aspirin Chewable 81 MG TAB ONE (14:25)
[2020-05-22] MEDS ORDERED: diphenhydrAMINE 50 MG/ML VIAL ONE (14:25)
[2020-05-22] MEDS ORDERED: Metoclopramide HCl 10 MG/2 ML VIAL ONE (14:25)
[2020-05-22] MEDS ORDERED: Orphenadrine Citrate 60 MG/2 ML VIAL IM SCH (14:30)
--- NOTE | 2020-05-22 14:52 | RAD ---
PORTABLE CHEST: Date: 05/22/2020 COMPARISON: 04/14/2020 exam. HISTORY: Sore throat, left neck pain. FINDINGS: Heart size and mediastinum are within normal limits. Lungs are clear of any focal infiltrative proces s. Minimal scoliotic change to the spine is noted. IMPRESSION: No active intrathoracic disease. POS: [facility]
[2020-05-22 14:55] LABS: #Eosinphils 0.1 thou/uL (0.0-0.7); #Lymphocytes 1.3 thou/uL (1.20-3.40); #Monocytes 0.3 thou/uL (0.11-0.59); #Neutrophils 2.1 thou/uL (1.40-6.50); %Basophils 0.9 % (0.0-1.0); %Eosinophils 2.4 % (0.0-10.0); %Lymphocytes 33.7 % (21.0-51.0); %Monocytes 7.9 % (0.0-10.0); %Neutrophils 55.1 % (42.0-75.0); Hemoglobin 13.4 g/dL (12.0-16.0); Mean Corpuscular HGB CONC 34.1 g/dL (32.0-36.0); Mean Corpuscular Hemoglobin 31.3 pg (27.0-31.0); Mean Corpuscular Volume 91.6 fL (78.0-98.0); Mean Platelet Volume 6.3 fL (7.4-10.4); Platelet Count 241 thou/uL (130-400); RBC Distribution Width 11.9 % (11.5-14.5); White Blood Cell (WBC) Count 3.8 thou/uL (4.8-10.8)
[2020-05-22 15:01] LABS: Bilirubin Negative (Negative); Blood, Urine Negative (Negative); Clarity Clear (Clear); Glucose, Urine (Dipstick) Normal (Negative); Ketone, Urine Negative (Negative); Leukocyte Negative Leu/uL (Negative); Nitrite Negative (Negative); Protein, Urine (Dipstick) Negative (Neg-Trace); Specific Gravity, Urine 1.002 (1.002-1.036); Urobilinogen Normal mg/dL (Less than 2)
[2020-05-22 16:07] LABS: ALT (SGPT) 117 U/L (8-55); AST (SGOT) 145 U/L (5-34); Albumin 4.1 g/dL (3.5-5.0); Alkaline Phosphatase 192 U/L (40-110); Anion Gap 18 mmol/L (10-20); BUN (Urea Nitrogen) 6 mg/dL (9.8-20.1); Bilirubin, Total 0.5 mg/dL (0.2-1.2); Calc. Creatinine Clearance 0 mL/min (70-130); Calcium 8.4 mg/dL (7.8-10.44); Carbon Dioxide 19 mmol/L (22-29); Chloride 102 mmol/L (98-107); Globulin 2.8 g/dL (2.4-3.5); Glucose 167 mg/dL (70-105); Lipase 12 U/L (8-78); Potassium 3.7 mmol/L (3.5-5.1); Protein, Total 6.9 g/dL (6.0-8.3); Sodium 135 mmol/L (136-145)
[2020-05-22] MEDS ORDERED: Diazepam 10 MG/2 ML SYRINGE ONE (17:49)
[2020-05-22 18:28] LABS: Troponin I 0.016 ng/mL (< 0.028)
--- NOTE | 2020-05-24 12:18 | EKG ---
Test Reason : Blood Pressure : / mmHG Vent. Rate : 089 BPM Atrial Rate : 089 BPM P-R Int : 140 ms QRS Dur : 084 ms QT Int : 400 ms P-R-T Axes : 065 073 074 degrees QTc Int : 486 ms Normal sinus rhythm Biatrial enlargement Nonspecific ST abnormality Prolonged QT Abnormal ECG Confirmed by FREEDOM MORGAN DO ([id number]), features editor ITALIA ZHANG ([id number]) on 05/24/2020 12:18:37 PM Referred By: Confirmed By:FREEDOM MORGAN DO
== END 2020-05-22 20:15 | disposition home or self-care (01) ==
LOC: ERS 13:06
DX: M54.2 Cervicalgia (principal); R07.9 Chest pain, unspecified; F17.210 Nicotine dependence, cigarettes, uncomplicated; Z79.899 Other long term (current) drug therapy
CPT/HCPCS: 36415; 71045; 80053; 81003; 83690; 84484; 85025; 93005; 96365; 96375; J1200; J2360; J2765; J3360

== ENCOUNTER 2020-07-02 11:19 | Outpatient (CLI) | payer MEDICARE ==
--- NOTE | 2020-07-02 13:25 | RAD ---
Exam: Cervical spine 3 views HISTORY: Spondylolysis. FINDINGS: Lateral neutral, lateral flexion and lateral extension views demonstrate anterior fusion pl ate with transvertebral body screw at C5, C6 and C7. No perihardware lucency. Disc prosthesis at C5-C6 and C6-C7. Predental space is normal. There is no prevertebral soft tissue swelling. There is s traightening of cervical lordosis in the neutral position. No abnormal motion upon extension or flexion IMPRESSION: Uncomplicated cervical fusion from C5 through C7
== END 2020-07-02 11:20 | disposition home or self-care (01) ==
LOC: BICRAD 11:19
PROVIDERS: ATTEND Nurse Practitioner Family
DX: M47.812 Spondylosis without myelopathy or radiculopathy, cervical region (principal); Z98.1 Arthrodesis status
CPT/HCPCS: 72040

== ENCOUNTER 2021-03-13 07:12 | Outpatient (CLI) | payer MEDICARE | END 2021-03-13 07:13 | disposition home or self-care (01) | LOC: BICMRI 07:12 | PROVIDERS: ATTEND Nurse Practitioner Family | DX: M47.812 Spondylosis without myelopathy or radiculopathy, cervical region (principal); M99.83 Other biomechanical lesions of lumbar region; M47.817 Spondylosis without myelopathy or radiculopathy, lumbosacral region; M48.02 Spinal stenosis, cervical region; Z98.1 Arthrodesis status | CPT/HCPCS: 72141; 72148 ==

== ENCOUNTER 2021-06-27 16:08 | Emergency (ER) | payer MEDICARE ==
[2021-06-27 16:40] LABS: #Eosinphils 0.1 thou/uL (0.0-0.7); #Monocytes 0.5 thou/uL (0.11-0.59); #Neutrophils 3.3 thou/uL (1.40-6.50); %Basophils 0.8 % (0.0-1.0); %Eosinophils 1.4 % (0.0-10.0); %Lymphocytes 20.7 % (21.0-51.0); %Monocytes 10.8 % (0.0-10.0); %Neutrophils 66.2 % (42.0-75.0); Mean Corpuscular HGB CONC 35.2 g/dL (32.0-36.0); Mean Corpuscular Hemoglobin 34.2 pg (27.0-31.0); Mean Corpuscular Volume 97.3 fL (78.0-98.0); Mean Platelet Volume 6.3 fL (7.4-10.4); Platelet Count 260 thou/uL (130-400); RBC Distribution Width 12.5 % (11.5-14.5)
[2021-06-27 17:02] LABS: ALT (SGPT) 65 U/L (8-55); AST (SGOT) 76 U/L (5-34); Albumin 4.3 g/dL (3.5-5.0); Alkaline Phosphatase 155 U/L (40-110); Anion Gap 11 mmol/L (10-20); BUN (Urea Nitrogen) 7 mg/dL (9.8-20.1); Calc. Creatinine Clearance 0 mL/min (70-130); Calcium 8.8 mg/dL (7.8-10.44); Carbon Dioxide 27 mmol/L (22-29); Chloride 102 mmol/L (98-107); Globulin 2.6 g/dL (2.4-3.5); Glucose 99 mg/dL (70-105); Potassium 3.9 mmol/L (3.5-5.1); Protein, Total 6.9 g/dL (6.0-8.3); Sodium 136 mmol/L (136-145)
[2021-06-27] MEDS ORDERED: Fluorescein Opthalmic Strip ONE (17:12)
[2021-06-27] MEDS ORDERED: Proparacaine 0.5% Opth 15 ML BOT ONE (17:12)
[2021-06-27] MEDS ORDERED: Acetaminophen 500 MG TAB ONE (17:30)
[2021-06-27] MEDS ORDERED: Morphine 4 MG/ML VIAL ONE (17:54)
== END 2021-06-27 19:02 | disposition home or self-care (01) ==
LOC: ERS 16:08
DX: B02.30 Zoster ocular disease, unspecified (principal); R07.9 Chest pain, unspecified; F17.210 Nicotine dependence, cigarettes, uncomplicated; Z87.19 Personal history of other diseases of the digestive system; Z79.899 Other long term (current) drug therapy
CPT/HCPCS: 36415; 71045; 80053; 84484; 85025; 93005; 94760; 96374; J2270

== ENCOUNTER 2022-03-05 13:00 | Outpatient (CLI) | payer MEDICARE | END 2022-03-05 13:01 | disposition home or self-care (01) | LOC: BICMAMMO 13:00 | PROVIDERS: ATTEND Nurse Practitioner Family | DX: N63.22 Unspecified lump in the left breast, upper inner quadrant (principal); Z98.82 Breast implant status | CPT/HCPCS: 76642; 77066; G0279 ==

== ENCOUNTER 2022-07-09 13:14 | Outpatient (CLI) | payer MEDICARE | END 2022-07-09 13:15 | disposition home or self-care (01) | LOC: SCSMRI 13:14 | PROVIDERS: ATTEND Nurse Practitioner Family | DX: M50.121 Cervical disc disorder at C4-C5 level with radiculopathy (principal); M47.22 Other spondylosis with radiculopathy, cervical region; M48.02 Spinal stenosis, cervical region; M25.78 Osteophyte, vertebrae; Z98.1 Arthrodesis status | CPT/HCPCS: 72141 ==

== ENCOUNTER 2022-11-15 14:03 | Outpatient (CLI) | payer MEDICARE | END 2022-11-15 14:04 | disposition home or self-care (01) | LOC: BICMAMMO 14:03 | PROVIDERS: ATTEND Nurse Practitioner Family | DX: N63.22 Unspecified lump in the left breast, upper inner quadrant (principal); N60.12 Diffuse cystic mastopathy of left breast | CPT/HCPCS: 76642; 77065; G0279 ==

== ENCOUNTER 2023-01-07 10:46 | Emergency (ER) | payer MEDICARE ==
[2023-01-07] MEDS ORDERED: Iopamidol-370 76% 500 ML MDV (1 ML CHARGE) ONE (11:12)
[2023-01-07 11:47] LABS: #Eosinphils 0.1 thou/uL (0.0-0.7); #Monocytes 0.6 thou/uL (0.11-0.59); #Neutrophils 3.7 thou/uL (1.40-6.50); %Basophils 0.7 % (0.0-1.0); %Eosinophils 1.1 % (0.0-10.0); %Lymphocytes 18.7 % (21.0-51.0); %Monocytes 10.5 % (0.0-10.0); %Neutrophils 68.8 % (42.0-75.0); Hematocrit 41.9 % (36.0-47.0); Hemoglobin 14.1 g/dL (12.0-16.0); Mean Corpuscular HGB CONC 33.7 g/dL (32.0-36.0); Mean Corpuscular Hemoglobin 31.7 pg (27.0-31.0); Mean Corpuscular Volume 94.2 fl (78.0-98.0); Mean Platelet Volume 8.8 fL (7.4-10.4); Platelet Count 221 10x3/uL (130-400); RBC Distribution Width 12.9 % (11.5-14.5); Red Blood Cell (RBC) Count 4.45 mill/uL (4.20-5.40); White Blood Cell (WBC) Count 5.4 10x3/uL (4.8-10.8)
[2023-01-07 11:48] LABS: Bacteria/HPF None Seen HPF (None Seen); Bilirubin Negative (Negative); Blood, Urine Negative (Negative); CAUTI Indications for Culture Dysuria,urgency,freq; Clarity Clear (Clear); Glucose, Urine (Dipstick) Normal (Negative); Ketone, Urine Negative (Negative); Leukocyte Negative Leu/uL (Negative); Nitrite Negative (Negative); Protein, Urine (Dipstick) Negative (Neg-Trace); RBC/HPF None Seen HPF (0-3); Specific Gravity, Urine 1.002 (1.002-1.036); Squamous Epithelial None Seen HPF (0-3); Urobilinogen Normal mg/dL (Less than 2); WBC/HPF 0-3 HPF (0-3)
[2023-01-07 11:50] LABS: Urine Culture Reflex No No
[2023-01-07 11:54] LABS: Amphetamine Not Detected (NotDetected); Barbiturates Screen Not Detected (NotDetected); Benzodiazepine Screen Not Detected (NotDetected); Cocaine Metabolite Screen Not Detected (NotDetected); Methadone Not Detected (NotDetected); Methamphetamine Not Detected (NotDetected); Opiate Screen Detected (NotDetected); Oxycodone Screen Not Detected (NotDetected); Phencyclidine (PCP) Not Detected (NotDetected); THC/Cannabinoid Screen Not Detected (NotDetected); Tricyclic Screen Not Detected (NotDetected)
[2023-01-07 12:18] LABS: ALT (SGPT) 36 U/L (8-55); AST (SGOT) 39 U/L (5-34); Albumin 4.3 g/dL (3.4-4.8); Alkaline Phosphatase 167 U/L (40-110); Anion Gap 14 mmol/L (10-20); BUN (Urea Nitrogen) 6 mg/dL (9.8-20.1); Bilirubin, Total 0.6 mg/dL (0.2-1.2); Calc. Creatinine Clearance 0 mL/min (70-130); Calcium 9.7 mg/dL (7.8-10.44); Carbon Dioxide 25 mmol/L (23-31); Chloride 102 mmol/L (98-107); Estimated GFR 98; Globulin 2.7 g/dL (2.4-3.5); Glucose 99 mg/dL (80-115); Lipase 15 U/L (8-78); Potassium 3.7 mmol/L (3.5-5.1); Sodium 137 mmol/L (136-145)
[2023-01-07 12:21] LABS: Troponin I Less than 0.010 ng/mL (< 0.028)
[2023-01-07 12:42] LABS: Acetaminophen Less than 10 mcg/mL (10.0-30.0); Alcohol Less than 10.0 mg/dL (Less than 10); Salicylate Less than 8.0 mg/dL (15.0-30.0)
[2023-01-07] MEDS ORDERED: Ondansetron PF 4 MG/2 ML Vial ONE (12:58)
[2023-01-07] MEDS ORDERED: Meclizine HCl 25 MG TAB ONE (12:58)
[2023-01-07] MEDS ORDERED: fentaNYL 50 mcg/mL 1 mL Vial ONE (12:58)
[2023-01-07] MEDS ORDERED: Dexamethasone 10 MG/ML VIAL ONE (12:58)
[2023-01-07] MEDS ORDERED: LORazepam 2 MG/ML SYR.(CARPUJECT) ONE (13:02)
[2023-01-07] MEDS ORDERED: Thiamine 100 MG TAB ONE (13:05)
[2023-01-07] MEDS ORDERED: Thiamine HCl 200 MG/2 ML VIAL SLOW IVP SCH (13:15)
== END 2023-01-07 14:47 | disposition home or self-care (01) ==
LOC: ERS 10:46
DX: R42 Dizziness and giddiness (principal); M54.2 Cervicalgia; F17.210 Nicotine dependence, cigarettes, uncomplicated
CPT/HCPCS: 70450; 70498; 80053; 80306; 80307; 81001; 83690; 84484; 85025; 93005; J2060; J3010; 36415; 96374; 96375; J1100; J2405; J3411; Q9967

== ENCOUNTER 2023-04-12 13:41 | Outpatient (CLI) | payer MEDICARE | END 2023-04-12 13:42 | disposition home or self-care (01) | LOC: BICMAMMO 13:41 | PROVIDERS: ATTEND Nurse Practitioner Family | DX: N63.32 Unspecified lump in axillary tail of the left breast (principal) | CPT/HCPCS: 77066; G0279 ==

== ENCOUNTER 2024-05-28 12:55 | Outpatient (CLI) | payer MEDICARE, MEDICAID | END 2024-05-28 12:56 | disposition home or self-care (01) | LOC: BICCT 12:55 | PROVIDERS: ATTEND Surgery | DX: S09.90XA Unspecified injury of head, initial encounter (principal); M48.02 Spinal stenosis, cervical region; Z98.1 Arthrodesis status; Z98.890 Other specified postprocedural states | CPT/HCPCS: 70450; 72125 ==

== ENCOUNTER 2024-06-07 12:52 | Outpatient (CLI) | payer MEDICARE, MEDICAID | END 2024-06-07 12:53 | disposition home or self-care (01) | LOC: BICCT 12:52 | PROVIDERS: ATTEND Surgery | DX: I62.03 Nontraumatic chronic subdural hemorrhage (principal) | CPT/HCPCS: 70450 ==